=== PATIENT | female | born 1995 | race African-American/Black ===

== ENCOUNTER 2016-09-27 14:08 | Emergency (ER) | payer SELFPAY ==
[~2016-09-27] VITALS: Ht 157.5 cm; Wt 110.0 kg
[~2016-09-27 14:08] MED LIST: MOTR200T4 PO
[2016-09-27 14:11] VITALS: BP 156/102; PULSE 106; RESP 18; TEMP 97.5; O2SAT 99
[2016-09-27] MEDS ORDERED: SODIUM CHLOR 0.9% 1000 ML INJ 1,000 ML IV ONE (14:11)
[2016-09-27] MEDS ORDERED: METOCLOPRAMIDE HCL 10 MG/2 ML VIAL IVP ONE (14:15)
[2016-09-27] MEDS ORDERED: diphenhydrAMINE HCL 50 MG/ML VIAL IVP ONE (14:15)
--- NOTE | 2016-09-27 14:25 | PD ---
HPI Chief Complaint: Stroke Alert Time Seen by Provider: 14:11 Travel History International Travel<30 days: No Contact w/Intl Traveler<30days: No Traveled to known affect area: No History of Present Illness HPI 21-year-old healthy female here with complaint of neurologic symptoms. Patient states that for the last week she has had right sided temporal headache. She denies any associated photophobia, phonophobia, nausea vomiting or visual changes. Patient states that this morning she woke up and was drooling out of the right side of the mouth. States that when she would take a drink of fluids that it would drip out of the right side of the mouth slightly. She did not notice any facial droop in the mirror. Those symptoms have since resolved. Approximately 30 minutes prior to arrival she noticed right-sided weakness, right upper extremity greater than right lower extremity prompting her ER visit. She denies any history of DVT, PE, hypercoagulable state. No family history of early onset cerebrovascular disease. Patient states she gets headaches occasionally, but not to this severity and never for this long. PFSH Past Medical History Diabetes: Yes ?: Not LMP: 09/23/2016 Past Surgical History Surgical History: No Previous Surgery Social History Alcohol Use: Yes (OCC) Tobacco Use: No Substance Use: Yes (MAR[place]) Allergies-Medications (Allergen,Severity, Reaction): Coded Allergies: No Known Allergies (Unverified , 08/07/16) Reported Meds & Prescriptions Reported Meds & Active Scripts Active Motrin Ib (Ibuprofen) 200 Mg Tab 600 Mg PO Q6H PRN Review of Systems ROS Limitations: Clinical Condition Except as stated in HPI: all other systems reviewed are Neg Physical Exam Exam Limitations: Clinical Condition Narrative GENERAL: well-appearing female in no acute distress SKIN: Warm and dry. HEAD: Atraumatic. Normocephalic. EYES: Pupils equal and round. EOMI. No a firm pupillary defect.No scleral icterus. No injection or drainage. ENT: No nasal bleeding or discharge. Mucous membranes pink and moist. NECK: Trachea midline. No JVD. supple. No bruit. CARDIOVASCULAR: Regular rate and rhythm. No murmur appreciated. RESPIRATORY: No accessory muscle use. Clear to auscultation. Breath sounds equal bilaterally. GASTROINTESTINAL: Abdomen soft, non-tender, nondistended. obese MUSCULOSKELETAL: No obvious deformities. No edema. NEUROLOGICAL: Awake and alert. answers questions and follows commands appropriately. No obvious cranial nerve deficits, I do not appreciate any facial droop. right upper extremity with 4-5 strength compared to the left upper extremity but no drift. Remainder of motor exam unremarkable without ataxia. Normal speech. PSYCHIATRIC: Appropriate mood and affect; insight and judgment normal. Data Data Last Documented VS Vital Signs Date Time Temp Pulse Resp B/P Pulse Ox O2 Delivery O2 Flow Rate FiO2 09/27/16 14:22 100 Room Air 2 09/27/16 14:11 97.5 106 18 156/102 Orders Diet Npo (09/27/16 Dinner) Activity Bed Rest (09/27/16 ) Electrocardiogram (09/27/16 ) I-Stat Creatinine (09/27/16 14:11) I-Stat Profile (09/27/16 14:11) Prothrombin Time / Inr (Pt) (09/27/16 14:11) Act Partial Throm Time (Ptt) (09/27/16 14:11) Complete Blood Count With Diff (09/27/16 14:11) Fibrinogen (09/27/16 14:11) Creatine Kinase (Cpk) (09/27/16 14:11) Troponin I (09/27/16 14:11) Ua Includes Microscopic (09/27/16 14:11) Drug Screen, Random Urine (09/27/16 14:11) Type And Screen (09/27/16 14:11) Ct Brain W/O Iv Contrast(Rout) (09/27/16 ) Beta Hcg (Quant/Titer) (09/27/16 14:11) Consult Neurology (09/27/16 ) Blood Glucose (09/27/16 14:11) Ecg Monitoring (09/27/16 14:11) Neuro Checks Q2HX12,Q4H (09/27/16 14:11) Nursing Bedside Swallow Assess .ONCE (09/27/16 14:11) Iv Access Insert/Monitor (09/27/16 14:11) NPO (09/27/16 14:11) Oximetry (09/27/16 14:11) Oxygen Administration (09/27/16 14:11) Sodium Chlor 0.9% 1000 Ml Inj (Ns 1000 M (09/27/16 14:11) Resp Oxygen Chente C Titrat 1-4 L (09/27/16 14:11) Cath For Specimen (09/27/16 14:11) Diphenhydramine Inj (Benadryl Inj) (09/27/16 14:15) Metoclopramide Inj (Reglan Inj) (09/27/16 14:15) Dexamethasone Inj (Decadron Inj) (09/27/16 14:30) (Hub Use Only)Inp Phy Cons/Ref (09/27/16 ) Labs Laboratory Tests Test 09/27/16 14:20 White Blood Count 10.3 TH/MM3 Red Blood Count 4.60 MIL/MM3 Hemoglobin 13.3 GM/DL Bedside Hemoglobin 13.3 G/DL Hematocrit 38.9 % Bedside Hematocrit 39.0 % Mean Corpuscular Volume 84.5 FL Mean Corpuscular Hemoglobin 28.9 PG Mean Corpuscular Hemoglobin 34.2 % Concent Red Cell Distribution Width 13.4 % Platelet Count 239 TH/MM3 Mean Platelet Volume 8.3 FL Neutrophils (%) (Auto) 57.4 % Lymphocytes (%) (Auto) 33.8 % Monocytes (%) (Auto) 8.0 % Eosinophils (%) (Auto) 0.4 % Basophils (%) (Auto) 0.4 % Neutrophils # (Auto) 5.9 TH/MM3 Lymphocytes # (Auto) 3.5 TH/MM3 Monocytes # (Auto) 0.8 TH/MM3 Eosinophils # (Auto) 0.0 TH/MM3 Basophils # (Auto) 0.0 TH/MM3 CBC Comment DIFF FINAL Differential Comment Prothrombin Time 10.8 SEC Prothromb Time International 1.0 RATIO Ratio Activated Partial 29.8 SEC Thromboplast Time Fibrinogen 377 mg/dL Bedside Sodium 138 MMOL/L Bedside Potassium 4.3 MMOL/L Bedside Chloride 104 MMOL/L Bedside Blood Urea Nitrogen 11 MG/DL Bedside Creatinine 0.8 MG/DL Bedside Glucose 99 MG/DL Total Creatine Kinase 157 U/L Troponin I LESS THAN 0.02 NG/ML Human Chorionic Gonadotropin, LESS THAN 1 Quant MIU/ML Blood Type B POSITIVE Antibody Screen NEGATIVE Blood Bank Comment [facility] Medical Screen Exam Complete: Yes Emergency Medical Condition: Yes Medical Record Reviewed: Yes Differential Diagnosis 21-year-old female here with one week of headache, drooling from the right side of the mouth upon waking this morning now resolved, and 30 minutes of right upper extremity weakness without drift. Differential includes atypical migraine , ischemic CVA, ICH. She does not have any underlying hypercoagulable state that would her at higher risk for venous sinus thrombosis. Narrative Course Patient immediately bedded from triage given her symptoms evaluated by myself and a stroke alert was called. Patient asked that a CT where imaging of the brain was negative. Patient was treated with Benadryl, Reglan, Decadron for her headache. Laboratory workup unremarkable. EKG was sinus rhythm. I spoke with Dr. Simmons of neurology who agreed that this is most likely an atypical migraine, states patient's symptoms are subjective without drift, and is okay with disposition home.patient felt improved after the above therapy and discharged home. Critical Care Narrative Aggregate critical care time was 35 minutes. Time to perform other separately billable procedures was not included in the critical care time. My time did not include minutes spent treating any other patients simultaneously or on activities that did not directly contribute to the patient's treatment. The services I provided to this patient were to treat and/or prevent clinically significant deterioration that could result in: neurologic decompensation, , disability I provided critical care services requiring my management, as noted below: Chart data review, documentation time, medication orders and management, vital sign assessments/reviewing monitor data, ordering and reviewing lab tests, ordering and interpreting/reviewing x-rays and diagnostic studies, care of the patient and discussion of the patient with the admitting physicians. Stroke Alert NIHSS NIH Stroke Scale Result: 0 NIHSS Time Completed: 14:08 Procedures Procedure Narrative Diagnosis Diagnosis: Primary Impression: Atypical migraine Referrals: Rosemary Simmons MD as needed Additional Instructions: Tylenol, ibuprofen, Excedrin Migraine as needed for headache. Follow-up with neurologist if headaches persist. Med/Other Pt SpecificInfo: No Change to Meds Disposition: 01 DISCHARGE HOME Condition: Stable Juliana Fowler MD Sep 27, 2016 14:25
[2016-09-27] MEDS ORDERED: DEXAMETHASONE SOD PHOS 20 MG/5 ML VIAL IV PUSH ONE (14:30)
--- NOTE | 2016-09-27 14:31 | RADRPT ---
EXAM DATE/TIME: 09/27/2016 14:15 [facility] COMPARISON: No previous studies available for comparison. INDICATIONS : Stroke alert; Right upper extremety weakness. RADIATION DOSE: 56.35 CTDIvol (mGy) MEDICAL HISTORY : Unobtainable. SURGICAL HISTORY : Unobtainable. ENCOUNTER: Initial ACUITY: 1 day PAIN SCALE: 0/10 LOCATION: cranial TECHNIQUE: Multiple contiguous axial images were obtained of the head. Using automated exposure control and adj ustment of the mA and/or kV according to patient size, radiation dose was kept as low as reasonably a chievable to obtain optimal diagnostic quality images. FINDINGS: CEREBRUM: The ventricles are normal for age. No evidence of midline shift, mass lesion, hemorrhage or acute in farction. No extra-axial fluid collections are seen. POSTERIOR FOSSA: The cerebellum and brainstem are intact. The 4th ventricle is midline. The cerebellopontine angle i s unremarkable. EXTRACRANIAL: The visualized portion of the orbits is intact. SKULL: The calvaria is intact. No evidence of skull fracture. CONCLUSION: No acute disease. Report called to Dr. Mccormack at 14: 29 Mundo Cowan MD on September 27, 2016 at 14:25 Board Certified Radiologist. This report was verified electronically.
[2016-09-27 14:37] LABS: AUTOMATED NEUTROPHIL # 5.9 TH/MM3 (1.8-7.7); BASOPHIL % 0.4 % (0.0-2.0); EOSINOPHIL % 0.4 % (0.0-4.0); HEMATOCRIT 38.9 % (35.0-46.0); HEMO FLAGS DIFF FINAL; LYMPH % 33.8 % (9.0-44.0); LYMPHOCYTE # 3.5 TH/MM3 (1.0-4.8); MEAN CELL VOLUME 84.5 FL (80.0-100.0); MEAN CORPUSCULAR HEMOGLOBIN 28.9 PG (27.0-34.0); MEAN CORPUSCULAR HGB CONC 34.2 % (32.0-36.0); NEUT % 57.4 % (16.0-70.0); PLATELET COUNT 239 TH/MM3 (150-450); RED CELL DISTRIBUTION WIDTH 13.4 % (11.6-17.2); WHITE BLOOD COUNT 10.3 TH/MM3 (4.0-11.0)
[2016-09-27 14:38] LABS: I-STAT POTASSIUM 4.3 MMOL/L (3.5-4.9); I-STAT SODIUM 138 MMOL/L (138-146)
[2016-09-27 14:50] LABS: APTT (PATIENT) 29.8 SEC (24.3-30.1); PROTHROMBIN TIME - PATIENT 10.8 SEC (9.8-11.6)
[2016-09-27 14:59] LABS: BETA HCG QUANT LESS THAN 1 MIU/ML (0-5); CREATINE KINASE 157 U/L (26-192)
[2016-09-27 15:19] LABS: BLOOD, URINE NEG (NEG); GLUCOSE,URINE NEG (NEG); KETONE, URINE NEG (NEG); NITRITE,URINE NEG (NEG); SQUAMOUS EPITHELIAL CELL URINE 4 /hpf (0-5); URINE COLOR LIGHT-YELLOW (YELLW/STRAW)
[2016-09-27 15:26] LABS: AMPHETAMINE, URINE NEG (NEG); BARBITURATES, URINE NEG (NEG); COCAINE, URINE NEG (NEG)
--- NOTE | 2016-09-27 15:28 | MB ---
cc: TRACIE GRIFFIN M.D. DATE OF CONSULTATION: 09/27/2016 DATE OF : 1995 REASON FOR CONSULTATION Headache, but a Stroke Alert was called. HISTORY OF PRESENT ILLNESS A 21-year-old healthy woman who comes in because she has been having a headache for about a week, started to get worse yesterday, bitemporal without loss of vision, started this morning when she woke up with drooling out of the right side of her mouth, trouble with what she describes as maintaining swallowing her saliva. That improved but started having some tingling in the right arm predominantly. No loss of use of her arm. It was just subjectively feeling a little weaker. She actually came on her own to the hospital, was able to ambulate, no dragging of her leg, no loss of use of the extremities, no loss of consciousness. PAST MEDICAL HISTORY She does not have any past medical history. Her LMP was 09/23/2016. PAST SURGICAL HISTORY None. SOCIAL HISTORY Very rarely drinks. No tobacco. Occasional marijuana. ALLERGIES None reported. MEDICATIONS Home medicines--just [id number] ibuprofen. PHYSICAL EXAMINATION VITAL SIGNS: Temperature 97.5, heart rate 106, respiratory rate 18, blood pressure 156/102. Satting at 99% to 100% on room air. NECK: Supple. There is no carotid bruit. HEART: Regular. LUNGS: Clear. NEUROLOGIC: She is awake and alert. She is oriented and fluent. She does exhibit photophobia but her pupils are reactive. Visual mcnulty are full. Face otherwise is symmetrical. Tongue is midline. Facial sensation to light touch is equal. Motor: Upper extremities. There is no drift. No significant leg lag noted. Cerebellar testing [id number] is normal bilaterally. Toes are downgoing bilaterally. Reflexes are slightly brisk throughout. Sensory is otherwise really unremarkable. Gait is withheld. Will give her some medication to improve her headache and can have her walk. IMAGING DATA CT of the head was unremarkable for anything acute. LABORATORY DATA CBC was normal. Chemistries: Glucose was 99. Coag panel is pending. IMPRESSION/RECOMMENDATIONS A 21-year-old woman with what appears to be a complicated migraine. Her NIH basically is 0. Recommend at this point in time some antiemetic with some Benadryl and steroid combination and consider low-dose pain medication. She is feeling better. Certainly she can be discharged home. Certainly if she is having ongoing migraine issues she can follow-up with neurology for ongoing care. This is not a stroke. This is not a TPA candidate, hence no TPA is to be initiated. MD [place] Andino/JAX /2:47 PM /3:20 PM
[2016-09-27 18:49] VITALS: BP 134/79
--- NOTE | 2016-09-28 14:14 | EKG ---
Date Performed: 09/27/2016 Time Performed: 14:38:54 PTAGE: 21 years EKG: Sinus rhythm NORMAL ECG NO PREVIOUS TRACING DOCTOR: Akash Schmidt Interpretating Date/Time 09/28/2016 14:11:01
== END 2016-09-27 18:51 | disposition home or self-care (01) ==
LOC: NEPE 14:08
DX: G43.109 Migraine with aura, not intractable, without status migrainosus (principal); R53.1 Weakness
CPT/HCPCS: 70450; 80307; 81001; 82435; 82550; 82565; 82947; 84132; 84295; 84484; 84520; 84702; 85025; 85384; 85610; 85730; 86850; 86900; 86901; 93005; 96374; 96375; 99291; J1100; J1200; J2765; J7030